=== PATIENT | male | born 1985 | race Caucasian/White ===

== ENCOUNTER 2021-11-20 07:00 | Day surgery (SDC) | payer OTHER ==
[~2021-11-20] VITALS: Ht 172.7 cm; Wt 75.0 kg
[2021-11-20 07:30] VITALS: BP 106/73
--- NOTE | 2021-11-20 07:30 | NUR ---
PATIENT TO ROOM AMBULATORY. CONSENT OBTAINED. VS OBTAINED. ADMISSION ASEESMENT COMPLETED AT THIS TIME. DR BHAT NOTIFIED. NEW ORDERS RECEIVED. IV ESTABLISHED. ORIENTED PATIENT TO ROOM AND UNIT. CALL LIGHT IN REACH. WILL CONTINUE TO MONITOR.
[2021-11-20 08:45] LABS: HEMATOCRIT 45.6 % (39.0-50.0); HEMOGLOBIN 14.9 g/dl (14.0-18.0); IMMATURE GRANULOCYTES 0.2 % (0.0-5.0); MEAN CELL VOLUME 98.5 fL CALC (80.0-100.0); MEAN CORPUSCULAR HGB 32.2 pG CALC (26.0-32.0); MEAN CORPUSCULAR HGB CONC 32.7 g/dL CAL (32.0-36.0); NEUT# 2.51 thou/uL (1.82-7.42); RED BLOOD COUNT 4.63 mill/uL (4.70-6.10); RED CELL DISTRI WIDTH 12.4 % (11.5-15.5)
[2021-11-20 08:48] LABS: ALBUMIN 4.2 g/dL (3.2-5.0); ALKALINE PHOSPHATASE 59 u/l (38-126); ANION GAP 11 (6-22 (CALC)); BILIRUBIN, TOTAL 0.4 mg/dL (0.0-1.4); BUN 10 mg/dL (9-20); BUN/CREATININE RATIO 14 (12-20 (CALC)); CARBON DIOXIDE 31 mmol/l (22-30); CHLORIDE 102 mmol/l (95-108); CREATININE 0.7 mg/dL (0.7-1.3); GFR > 60 ML/MIN (>=60 (CALC)); GFR FOR AFR.AMER. > 60 ML/MIN (>=60 (CALC)); MAGNESIUM 2.1 mg/dL (1.6-2.3); POTASSIUM 4.5 mmol/l (3.5-5.1); SGOT/AST 29 u/l (17-59); SODIUM 139 mmol/l (137-146); TOTAL PROTEIN 7.4 g/dL (6.3-8.2)
[2021-11-20] MEDS ORDERED: NALTREXONE50 MG PO (13:30)
[2021-11-20] MEDS ORDERED: CLONIDINE0.1 MG PO (13:30)
[2021-11-20] MEDS ORDERED: KLONOPIN0.5 MG PO (13:31)
--- NOTE | 2021-11-20 17:37 | NUR ---
ARRIVED ON UNIT @ 1730 TRANSPORTED VIA BED BY STAFF, EYES CLOSED, MOANING AND GROANING, RESTLESS AND TURNING FROM SIDE-SIDE, 1 LT IVF LR BOLUS INFUSING TO SITE IN IN RAC, VITAL SIGNS BEING MEASURED, BED ALARM ON, BED IN LOWEST POSITION AND CALL MAE IN REACH.
[2021-11-20 18:00] VITALS: BP 124/78
[2021-11-20 18:20] VITALS: BP 117/77
--- NOTE | 2021-11-20 19:30 | NUR ---
RECIEVED REPORT FROM BOBBY FORDE
--- NOTE | 2021-11-20 20:00 | NUR ---
PT RESTING IN SEMI FOWLERS POSITION. PT IS A/OX3 AND SLIGHTLY AGITATED. ASSESSMENT COMPLETED. REPSIRAITONS EVEN AND UNLABORED. LUNG SOUNDS CLEAR. HEART RHYTHM NORMAL. BOWEL SOUNDS ACTIVE. #20G RAC AND #18G LFA FLUSHED, SITE APPEARS HEALTHY AND PATENT. PULSE STRONG. SKIN INTACT. PT COMPLAINS OF BEING COLD.WARM BLANKET PROVIDED. ALL SAFTEY PRECAUTIONS IN PLACE WITH CALL LIGHT IN REACH. BED ALARM ACTIVE. CONTINUE TO MONITOR.
[2021-11-20 20:10] VITALS: BP 133/74
[2021-11-20 20:46] VITALS: BP 124/72
[2021-11-20 22:58] VITALS: BP 114/66
--- NOTE | 2021-11-20 23:47 | NUR ---
SCHEDULED MEDICATIONS AND TORADOL ADMINISTERED. PT COMPLAINS OF 10/10 LOWER BACK PAIN. REPSIRATIONE EVEN AND UNLABORED. #20G RAC INFUSING WITH IVF PER ORDER, SITE PATENT. PT DENIES OF ANY NEEDS. NUNU AND ALTON PROVIDED. PT TOLERATED WELL. ALL SAFETY PRECAUTIONS IN PLACE WITH CALL LIGHT IN REACH. BED ALARM ACTIVE. WILL CONTINUE TO MONITOR
[2021-11-21 03:45] VITALS: BP 101/50
--- NOTE | 2021-11-21 04:08 | NUR ---
PT RESTING IN SEMI FOWLERS POSITION WITH BLANKET OVER HEAD. KLONOPIN AND CLONODINE HELD DUE TO LOW BP. TYLENOL AND NALTROXONE TOLERATED WELL. #20G RAC AND #18G LH REMAINS IN PLACE. PT REQUEST DOOR TO BE CLOSED. DOOR CRACKED TO ALLOW PT TO SLEEP. ALL SAFTEY PRECAUTIONS IN PLACE WITH CALL LIGHT IN REACH.
--- NOTE | 2021-11-21 05:16 | NUR ---
REPORTS OF PT VOMITTING. PHENERGAN ADMINISTERED. PT REQUEST TO SIT IN RECYLINER, WRITTER ASSITED.
--- NOTE | 2021-11-21 05:16 | NUR ---
PT REFUSING BLOOD DRAW AT THIS TIME.
--- NOTE | 2021-11-21 05:53 | NUR ---
PT FOUND ON BATHROOM FLOOR VOMITTING. PT ASSISTED BACK INTO RECYLINER. PT STATES HE DID NOT FALL, HE JUST DECIDED TO LAY DOWN. NO VISABLE INJURIES. PT MEDICATED WITH ZOFRAN. TRASH CAN PLACED BY RECYLINER. PT INSTRUCTED TO NOT GET UP ALONE. PT VERBALIZED UNDERSTANDING.
--- NOTE | 2021-11-21 08:00 | NUR ---
SHIFT REPORT RECEIVED FROM ALEXIS MCDANIEL. PT RESTING WITH SITTER AT DOOR FOR ADDITIONAL SAFETY. PT IS MILDLY RESTLESS. VSS. PT DENIES PAIN,SOB OR DISCOMFORT. INSTRUCTED PT TO CALL FOR ASSISTANCE, WILL CONTINUE TO MONITOR.
[2021-11-21 08:53] VITALS: BP 127/69
--- NOTE | 2021-11-21 12:00 | NUR ---
PT REMAINS IN BED, UNWILLING TO GET OOB AND PARTICIPATE WITH ADL'S. SAFETY REVIEWED, SITTER REMAINS AT DOORWAY FOR ADDITIONAL SAFETY MEASURES. CALL LIGHT WITHIN REACH. INSTRUCTED PT TO CALL FOR ASSISTANCE. WILL CONTINUE TO MONITOR.
[2021-11-21 16:04] VITALS: BP 116/66
--- NOTE | 2021-11-21 16:56 | NUR ---
PT GIVEN DISCHARGE INSTRUCTION AND BELONGINGS GATHERED AT THIS TIME. IV SITES REMOVED. PT GIVEN TYLENOL FOR GENERALIZED DISCOMFORT. STABLE AT TIME OF DEPARTURE.
== END 2021-11-21 17:08 | disposition home or self-care (01) | DRG 897 ==
LOC: ANR 07:00 → MS2 07:00 → ANR 15:46
PROVIDERS: ATTEND Anesthesiology
DX: F11.20 Opioid dependence, uncomplicated (principal)
CPT/HCPCS: J2060; J2354